=== PATIENT | female | born 1990 | race Caucasian/White ===

== ENCOUNTER 2021-07-12 09:02 | Outpatient (CLI) | payer OTHER, SELFPAY ==
[2021-07-12 10:02] LABS: Beta HCG Quantitative 20.67 mIU/ML
== END 2021-07-12 09:03 | disposition home or self-care (01) ==
DX: N91.2 Amenorrhea, unspecified (principal)
CPT/HCPCS: 36415; 84702

== ENCOUNTER 2021-07-15 07:18 | Outpatient (CLI) | payer OTHER, SELFPAY | END 2021-07-15 07:19 | disposition home or self-care (01) | LOC: ANHLAB 07:20 | DX: N91.2 Amenorrhea, unspecified (principal) | CPT/HCPCS: 36415; 84702 ==

== ENCOUNTER 2021-08-16 16:37 | Outpatient (CLI) | payer OTHER, SELFPAY ==
[2021-08-16 17:52] LABS: Beta HCG Quantitative 124.58 mIU/ML
== END 2021-08-16 16:38 | disposition home or self-care (01) ==
LOC: ANHLAB 16:40
DX: Z32.00 Encounter for pregnancy test, result unknown (principal)
CPT/HCPCS: 36415; 84702

== ENCOUNTER 2021-08-22 11:10 | Outpatient (CLI) | payer OTHER, SELFPAY | END 2021-08-22 11:11 | disposition home or self-care (01) | LOC: ANHLAB 11:14 | DX: Z32.00 Encounter for pregnancy test, result unknown (principal); Z3A.00 Weeks of gestation of pregnancy not specified | CPT/HCPCS: 36415; 84702 ==

== ENCOUNTER 2021-08-29 12:13 | Outpatient (CLI) | payer OTHER, SELFPAY ==
[2021-08-29 13:14] LABS: Beta HCG Quantitative 8.39 mIU/ML
== END 2021-08-29 12:14 | disposition home or self-care (01) ==
LOC: ANHLAB 12:18
DX: Z32.00 Encounter for pregnancy test, result unknown (principal)
CPT/HCPCS: 36415; 84702

== ENCOUNTER 2021-10-18 08:22 | Outpatient (CLI) | payer OTHER, SELFPAY ==
[2021-10-18 09:40] LABS: Beta HCG Quantitative 22.49 mIU/ML
== END 2021-10-18 08:23 | disposition home or self-care (01) ==
DX: Z32.00 Encounter for pregnancy test, result unknown (principal)
CPT/HCPCS: 36415; 84702

== ENCOUNTER 2021-10-21 11:50 | Outpatient (CLI) | payer OTHER, SELFPAY ==
[2021-10-21 12:50] LABS: Beta HCG Quantitative 32.81 mIU/ML
== END 2021-10-21 11:51 | disposition home or self-care (01) ==
LOC: ANHLAB 11:52
DX: Z32.00 Encounter for pregnancy test, result unknown (principal)
CPT/HCPCS: 36415; 84702

== ENCOUNTER 2021-10-23 06:33 | Outpatient (CLI) | payer OTHER, SELFPAY | END 2021-10-23 06:34 | disposition home or self-care (01) | LOC: ANHLAB 06:34 | DX: Z32.00 Encounter for pregnancy test, result unknown (principal) | CPT/HCPCS: 36415; 84702 ==

== ENCOUNTER 2021-10-25 06:34 | Outpatient (CLI) | payer OTHER, SELFPAY ==
[2021-10-25 08:40] LABS: Beta HCG Quantitative 206.81 mIU/ML
== END 2021-10-25 06:35 | disposition home or self-care (01) ==
LOC: ANHLAB 06:36
DX: Z32.00 Encounter for pregnancy test, result unknown (principal)
CPT/HCPCS: 36415; 84702

== ENCOUNTER 2021-12-12 12:11 | Outpatient (CLI) | payer OTHER, SELFPAY ==
[2021-12-12 12:56] LABS: Beta HCG Quantitative 21.64 mIU/ML
== END 2021-12-12 12:12 | disposition home or self-care (01) ==
DX: Z32.00 Encounter for pregnancy test, result unknown (principal)
CPT/HCPCS: 36415; 84702

== ENCOUNTER 2021-12-18 13:15 | Outpatient (CLI) | payer OTHER, SELFPAY ==
[2021-12-18 13:58] LABS: Beta HCG Quantitative 9.53 mIU/ML
== END 2021-12-18 13:16 | disposition home or self-care (01) ==
LOC: ANHLAB 13:19
DX: Z32.00 Encounter for pregnancy test, result unknown (principal)
CPT/HCPCS: 36415; 84702

== ENCOUNTER 2021-12-31 14:56 | Outpatient (CLI) | payer OTHER, SELFPAY ==
[2021-12-31 15:43] LABS: Beta HCG Quantitative < 2.39 mIU/ML
== END 2021-12-31 14:57 | disposition home or self-care (01) ==
DX: N91.2 Amenorrhea, unspecified (principal)
CPT/HCPCS: 36415; 84702

== ENCOUNTER 2022-01-23 06:42 | Outpatient (CLI) | payer OTHER, BC, SELFPAY ==
[2022-01-23 07:12] LABS: Hematocrit 41.6 % (37.0-47.0); Hemoglobin 13.7 g/dL (12.0-15.0); Mean Corpuscular HGB Conc 32.9 g/dl (32-36); Mean Corpuscular Hemoglobin 29.7 pg (26-34); Mean Corpuscular Volume 90.2 fl (80-100); Mean Platelet Volume 9.7 fl (7.4-10.4); Platelet Count Result 270 k/mm3 (150-375); Red Blood Count 4.61 M/mm3 (4.2-5.4); Red Cell Distribution Width 12.8 % (11.5-14.5); White Blood Count 9.5 K/mm3 (4.5-10.0)
[2022-01-23 07:28] LABS: Alanine Aminotransferase 28 U/L (6-35); Albumin Level 4.8 g/dL (3.5-5.1); Alkaline Phosphatase 65 U/L (38-126); Anion Gap 9 mmol/L (8-16); Aspartate Amino Transferase 27 U/L (14-36); Bilirubin,Total 0.4 mg/dL (0.2-1.3); Blood Urea Nitrogen 12 mg/dL (7-17); Calcium 8.9 mg/dL (8.4-10.2); Carbon Dioxide 25 mmol/L (22-30); Chloride 106 mmol/L (98-107); Cholesterol 190 mg/dL (0-200); Estimated Glomerular Filt Rate > 60; Glucose 109 mg/dL (65-110); HDL Direct 30 mg/dL; Potassium 4.1 mmol/L (3.4-5.0); Sodium 140 mmol/L (137-145); Triglycerides 156 mg/dL (<150)
[2022-01-23 07:40] LABS: LDL Cholesterol Direct 116 mg/dL
[2022-01-23 08:35] LABS: Folic Acid 18.9 ng/mL (2.76->20)
== END 2022-01-23 06:43 | disposition home or self-care (01) ==
PROVIDERS: PCP Physician Assistant; Visit Provider Physician Assistant
DX: Z00.00 Encounter for general adult medical examination without abnormal findings (principal)
CPT/HCPCS: 36415; 80053; 80061; 82607; 82746; 84443; 85027

== ENCOUNTER → 2022-02-11 00:15 | Outpatient (CLI) | payer OTHER, BC, SELFPAY ==
[2022-02-11 16:55] LABS: SARS-CoV-2 RNA PCR Negative
== END ==
PROVIDERS: PCP Physician Assistant
DX: Z01.812 Encounter for preprocedural laboratory examination (principal); Z20.822 Contact with and (suspected) exposure to COVID-19
CPT/HCPCS: C9803; U0003; U0005

== ENCOUNTER 2022-02-11 13:01 | Outpatient (CLI) | payer OTHER, BC, SELFPAY ==
[2022-02-11 14:49] LABS: Basophils Percent Auto 0.4 % (0.2-1.2); Eosinophils Absolute Auto 0.1 K/mm3 (0-0.3); Eosinophils Percent Auto 1.2 % (0-4.4); Hematocrit 40.6 % (37.0-47.0); Hemoglobin 13.5 g/dL (12.0-15.0); Immature Granulocyte Absolute 0.04 K/mm3 (0.00-0.031); Immature Granulocyte Percent A 0.4 % (0-0.5); Lymphocytes Absolute Auto 2.69 K/mm3 (0.9-3.2); Lymphocytes Percent Auto 26.2 % (18.3-44.2); Mean Corpuscular HGB Conc 33.3 g/dl (32-36); Mean Corpuscular Hemoglobin 30.1 pg (26-34); Mean Corpuscular Volume 90.4 fl (80-100); Mean Platelet Volume 9.9 fl (7.4-10.4); Monocytes Absolute Auto 0.7 K/mm3 (0.1-0.6); Monocytes Percent Auto 6.5 % (2.6-8.5); Neutrophils Absolute Auto 6.7 K/mm3 (1.3-6.7); Neutrophils Percent Auto 65.3 % (45.5-73.1); Platelet Count Result 295 k/mm3 (150-375); Red Blood Count 4.49 M/mm3 (4.2-5.4); Red Cell Distribution Width 12.7 % (11.5-14.5); White Blood Count 10.3 K/mm3 (4.5-10.0)
[2022-02-11 15:04] LABS: Alanine Aminotransferase 36 U/L (6-35); Albumin Level 5.2 g/dL (3.5-5.1); Alkaline Phosphatase 73 U/L (38-126); Anion Gap 11 mmol/L (8-16); Aspartate Amino Transferase 28 U/L (14-36); Bilirubin,Total 0.4 mg/dL (0.2-1.3); Blood Urea Nitrogen 15 mg/dL (7-17); CRP 1.5 mg/dL (<1.0); Calcium 9.2 mg/dL (8.4-10.2); Carbon Dioxide 24 mmol/L (22-30); Chloride 103 mmol/L (98-107); Estimated Glomerular Filt Rate > 60; Glucose 89 mg/dL (65-110); Sodium 138 mmol/L (137-145)
[2022-02-11 15:21] LABS: Hemoglobin A1C 5.1 % (<5.7)
[2022-02-11 15:22] LABS: Beta HCG Quantitative < 2.39 mIU/ML
[2022-02-13 13:11] LABS: DHEA-Sulfate 142 mcg/dL (23-266)
[2022-02-13 21:35] LABS: Anti-Thrombin III Antigen 98 % (80-120)
[2022-02-14 05:29] LABS: FSH 6.4 mIU/mL (***); LH 6.2 mIU/mL (***); Progesterone 0.4 ng/mL (***); Prolactin 8.1 ng/mL (***)
[2022-02-14 06:40] LABS: Thyroid Peroxidase Antibodies 106 IU/mL (<9)
[2022-02-14 13:49] LABS: Homocysteine 6.9 umol/L (<10.4)
[2022-02-14 18:31] LABS: Testosterone Free 8.9 pg/mL (0.1-6.4); Testosterone Total 46 ng/dL (2-45)
[2022-02-14 20:10] LABS: Hexagonal Phase Confirm Negative (Negative); Lupus dRVVT 1:1 Mix Interpreta Not Indicated; Lupus dRVVT Screen 39 sec (<=45); PTT-LA Screen 54 sec (<=40)
[2022-02-18 06:52] LABS: Anti Nuclear Antibody Pattern Nuclear, Speckled; Anti Nuclear Antibody Titer 1:40 (Negative)
== END 2022-02-11 13:02 | disposition home or self-care (01) ==
LOC: ANHLAB 13:05
PROVIDERS: PCP Physician Assistant
DX: N96 Recurrent pregnancy loss (principal); N92.6 Irregular menstruation, unspecified; E28.8 Other ovarian dysfunction
CPT/HCPCS: 36415; 80053; 81240; 82627; 83001; 83002; 83036; 83090; 83498; 83520; 84144; 84146; 84402; 84403; 84443; 84702; 85025; 85301; 85598; 85613; 85730; 86038; 86039; 86140; 86146; 86376; 86850

== ENCOUNTER 2022-05-21 06:52 | Outpatient (RCR) | payer OTHER, BC, SELFPAY ==
[2022-05-07 08:38] LABS: Beta HCG Quantitative 34.29 mIU/ML
[2022-05-09 08:43] LABS: Beta HCG Quantitative 81.71 mIU/ML
== END 2022-08-05 23:59 | disposition home or self-care (01) ==
LOC: ANHLAB 06:52
PROVIDERS: PCP Physician Assistant
DX: Z32.00 Encounter for pregnancy test, result unknown (principal)
CPT/HCPCS: 36415; 84702

== ENCOUNTER 2022-07-01 14:20 | Outpatient (CLI) | payer OTHER, BC, SELFPAY ==
[2022-07-01 14:54] LABS: Basophils Percent Auto 0.2 % (0.2-1.2); Eosinophils Absolute Auto 0.1 K/mm3 (0-0.3); Eosinophils Percent Auto 0.4 % (0-4.4); Hemoglobin 13.3 g/dL (12.0-15.0); Immature Granulocyte Absolute 0.08 K/mm3 (0.00-0.031); Immature Granulocyte Percent A 0.7 % (0-0.5); Lymphocytes Absolute Auto 2.36 K/mm3 (0.9-3.2); Lymphocytes Percent Auto 19.6 % (18.3-44.2); Mean Corpuscular HGB Conc 34.1 g/dl (32-36); Mean Corpuscular Hemoglobin 31.1 pg (26-34); Mean Corpuscular Volume 91.1 fl (80-100); Monocytes Absolute Auto 0.6 K/mm3 (0.1-0.6); Monocytes Percent Auto 5.1 % (2.6-8.5); Neutrophils Absolute Auto 8.9 K/mm3 (1.3-6.7); Platelet Count Result 284 k/mm3 (150-375); Red Blood Count 4.28 M/mm3 (4.2-5.4); Red Cell Distribution Width 13.9 % (11.5-14.5); White Blood Count 12.1 K/mm3 (4.5-10.0)
[2022-07-01 15:44] LABS: Hepatitis B Surface Antigen Negative (Negative); Rubella IgG Antibody 4.5 IU/ML
[2022-07-01 15:46] LABS: HIV 1/2 Ab P24 Ag Result Negative (Negative)
[2022-07-01 15:55] LABS: Hepatitis C Virus Antibody Negative (Negative)
[2022-07-01 16:29] LABS: Rapid Plasma Reagin Non-Reactive (NonReactive)
[2022-07-03 08:14] LABS: PCP NEGATIVE ng/mL (<25)
[2022-07-11 15:37] LABS: Amphetamines NEGATIVE; Marijuana Metabolites NEGATIVE
[2022-07-11 15:38] LABS: Barbiturates NEGATIVE; Benzodiazepines NEGATIVE; Cocaine Metabolites NEGATIVE
== END 2022-07-01 14:21 | disposition home or self-care (01) ==
PROVIDERS: PCP Physician Assistant
DX: Z36.9 Encounter for antenatal screening, unspecified (principal); Z3A.10 10 weeks gestation of pregnancy
CPT/HCPCS: 36415; 80307; 84443; 85025; 86592; 86703; 86762; 86803; 86850; 86900; 86901; 87086; 87088; 87147; 87340; G0432

== ENCOUNTER 2022-10-28 12:25 | Outpatient (CLI) | payer SELFPAY ==
[2022-10-28 13:33] LABS: Alanine Aminotransferase 16 U/L (6-35); Albumin Level 4.1 g/dL (3.5-5.1); Alkaline Phosphatase 93 U/L (38-126); Anion Gap 7 mmol/L (8-16); Aspartate Amino Transferase 19 U/L (14-36); Bilirubin,Total 0.4 mg/dL (0.2-1.3); Blood Urea Nitrogen 4 mg/dL (7-17); Calcium 8.9 mg/dL (8.4-10.2); Carbon Dioxide 25 mmol/L (22-30); Chloride 102 mmol/L (98-107); Estimated Glomerular Filt Rate > 60; Glucose 97 mg/dL (65-110); Potassium 3.1 mmol/L (3.4-5.0); Sodium 134 mmol/L (137-145)
== END 2022-10-28 12:26 | disposition home or self-care (01) ==
PROVIDERS: PCP Physician Assistant
DX: Z86.39 Personal history of other endocrine, nutritional and metabolic disease (principal)
CPT/HCPCS: 36415; 80053

== ENCOUNTER 2022-11-11 16:10 | Outpatient (CLI) | payer OTHER, SELFPAY ==
[2022-11-11 16:46] LABS: Anion Gap 6 mmol/L (8-16); Blood Urea Nitrogen 6 mg/dL (7-17); Calcium 9.4 mg/dL (8.4-10.2); Carbon Dioxide 24 mmol/L (22-30); Chloride 103 mmol/L (98-107); Estimated Glomerular Filt Rate > 60; Glucose 83 mg/dL (65-110); Potassium 3.7 mmol/L (3.4-5.0); Sodium 133 mmol/L (137-145)
== END 2022-11-11 16:11 | disposition home or self-care (01) ==
LOC: ANHLAB 16:16
PROVIDERS: PCP Physician Assistant
DX: O99.210 Obesity complicating pregnancy, unspecified trimester (principal); O10.919 Unspecified pre-existing hypertension complicating pregnancy, unspecified trimester; Z86.39 Personal history of other endocrine, nutritional and metabolic disease
CPT/HCPCS: 36415; 80048

== ENCOUNTER 2022-11-26 07:39 | Outpatient (CLI) | payer OTHER, SELFPAY ==
[2022-11-26 08:57] LABS: Alanine Aminotransferase 23 U/L (6-35); Alkaline Phosphatase 110 U/L (38-126); Anion Gap 8 mmol/L (8-16); Aspartate Amino Transferase 23 U/L (14-36); Bilirubin,Total 0.5 mg/dL (0.2-1.3); Blood Urea Nitrogen 4 mg/dL (7-17); Calcium 9.2 mg/dL (8.4-10.2); Carbon Dioxide 25 mmol/L (22-30); Chloride 104 mmol/L (98-107); Estimated Glomerular Filt Rate > 60; Glucose 125 mg/dL (65-110); Sodium 137 mmol/L (137-145)
== END 2022-11-26 07:40 | disposition home or self-care (01) ==
PROVIDERS: PCP Physician Assistant
DX: O99.283 Endocrine, nutritional and metabolic diseases complicating pregnancy, third trimester (principal); E03.9 Hypothyroidism, unspecified; Z86.39 Personal history of other endocrine, nutritional and metabolic disease; Z3A.00 Weeks of gestation of pregnancy not specified
CPT/HCPCS: 36415; 80053; 84443; 86147

== ENCOUNTER 2022-11-28 13:02 | Outpatient (CLI) | payer OTHER, SELFPAY ==
[2022-11-28 13:55] LABS: Basophils Percent Auto 0.2 % (0.2-1.2); Eosinophils Absolute Auto 0.1 K/mm3 (0-0.3); Eosinophils Percent Auto 0.6 % (0-4.4); Hematocrit 33.3 % (37.0-47.0); Hemoglobin 11.1 g/dL (12.0-15.0); Immature Granulocyte Absolute 0.04 K/mm3 (0.00-0.031); Immature Granulocyte Percent A 0.4 % (0-0.5); Lymphocytes Absolute Auto 1.85 K/mm3 (0.9-3.2); Lymphocytes Percent Auto 19.6 % (18.3-44.2); Mean Corpuscular HGB Conc 33.3 g/dl (32-36); Mean Corpuscular Hemoglobin 29.4 pg (26-34); Mean Corpuscular Volume 88.3 fl (80-100); Mean Platelet Volume 10.6 fl (7.4-10.4); Monocytes Absolute Auto 0.6 K/mm3 (0.1-0.6); Monocytes Percent Auto 6.5 % (2.6-8.5); Neutrophils Absolute Auto 6.9 K/mm3 (1.3-6.7); Neutrophils Percent Auto 72.7 % (45.5-73.1); Platelet Count Result 235 k/mm3 (150-375); Red Blood Count 3.77 M/mm3 (4.2-5.4); Red Cell Distribution Width 13.1 % (11.5-14.5); White Blood Count 9.4 K/mm3 (4.5-10.0)
[2022-11-28 14:08] LABS: Total Protein Urine Random 19 mg/dL; Ur Ttl Prot Creatinine Ratio 0.19 mg/mg (0-0.20)
== END 2022-11-28 13:03 | disposition home or self-care (01) ==
LOC: ANHLAB 13:05
PROVIDERS: PCP Physician Assistant
DX: O16.2 Unspecified maternal hypertension, second trimester (principal); Z3A.00 Weeks of gestation of pregnancy not specified
CPT/HCPCS: 36415; 82570; 84156; 85025

== ENCOUNTER 2022-12-02 12:01 | Outpatient (NON) | payer OTHER, SELFPAY | END 2022-12-02 12:02 | disposition home or self-care (01) | PROVIDERS: PCP Physician Assistant | DX: R82.90 Unspecified abnormal findings in urine (principal) | CPT/HCPCS: 87086; 87088 ==

== ENCOUNTER 2022-12-05 14:24 | Outpatient (CLI) | payer OTHER, SELFPAY ==
[2022-12-05 15:08] LABS: Basophils Percent Auto 0.3 % (0.2-1.2); Eosinophils Absolute Auto 0.1 K/mm3 (0-0.3); Eosinophils Percent Auto 0.8 % (0-4.4); Hematocrit 36.3 % (37.0-47.0); Hemoglobin 11.9 g/dL (12.0-15.0); Immature Granulocyte Absolute 0.07 K/mm3 (0.00-0.031); Immature Granulocyte Percent A 0.7 % (0-0.5); Lymphocytes Absolute Auto 1.89 K/mm3 (0.9-3.2); Lymphocytes Percent Auto 18.9 % (18.3-44.2); Mean Corpuscular HGB Conc 32.8 g/dl (32-36); Mean Corpuscular Hemoglobin 29.2 pg (26-34); Mean Corpuscular Volume 89.2 fl (80-100); Mean Platelet Volume 10.6 fl (7.4-10.4); Monocytes Absolute Auto 0.7 K/mm3 (0.1-0.6); Monocytes Percent Auto 7.4 % (2.6-8.5); Neutrophils Absolute Auto 7.2 K/mm3 (1.3-6.7); Neutrophils Percent Auto 71.9 % (45.5-73.1); Platelet Count Result 275 k/mm3 (150-375); Red Blood Count 4.07 M/mm3 (4.2-5.4); Red Cell Distribution Width 13.2 % (11.5-14.5)
[2022-12-05 15:16] LABS: Creatinine Urine 42.2 mg/dL
[2022-12-05 15:21] LABS: Alanine Aminotransferase 25 U/L (6-35); Albumin Level 4.4 g/dL (3.5-5.1); Alkaline Phosphatase 112 U/L (38-126); Anion Gap 8 mmol/L (8-16); Aspartate Amino Transferase 29 U/L (14-36); Bilirubin,Total 0.5 mg/dL (0.2-1.3); Blood Urea Nitrogen 5 mg/dL (7-17); Calcium 9.7 mg/dL (8.4-10.2); Carbon Dioxide 28 mmol/L (22-30); Chloride 102 mmol/L (98-107); Estimated Glomerular Filt Rate > 60; Glucose 96 mg/dL (65-110); Potassium 3.9 mmol/L (3.4-5.0); Sodium 138 mmol/L (137-145)
[2022-12-05 16:32] LABS: Total Protein Urine Random 19 mg/dL; Ur Ttl Prot Creatinine Ratio 0.45 mg/mg (0-0.20)
== END 2022-12-05 14:25 | disposition home or self-care (01) ==
LOC: ANHLAB 14:29
DX: E87.6 Hypokalemia (principal); O16.2 Unspecified maternal hypertension, second trimester; O10.919 Unspecified pre-existing hypertension complicating pregnancy, unspecified trimester; O09.93 Supervision of high risk pregnancy, unspecified, third trimester; Z3A.00 Weeks of gestation of pregnancy not specified
CPT/HCPCS: 36415; 80053; 81002; 82570; 84156; 85025

== ENCOUNTER 2023-02-14 10:10 | Emergency (ER) | payer OTHER, SELFPAY ==
--- NOTE | 2023-02-14 10:55 | ED.BACK ---
HPI - Back Pain/Injury General Chief Complaint: Back Pain/Injury Stated Complaint: BACK SPASMS Time Seen by Provider: 02/14/23 10:55 Source: patient, RN notes reviewed and old records reviewed Mode of arrival: ambulatory Limitations: no limitations History of Present Illness HPI Narrative: 33 year old female who presents to [facility] care with complaints of thoracic back pain between her shoulder blades with episode this morning around 0300 which wrapped around her rib cage to middle of lower chest area. Patient states pain was bad and she thinks she had vagal spasm and threw up. Patient reports that she does have some discomfort in her chest when she takes a deep breath she thinks its from vomiting. Patient reports that she took a left over OxyContin 5 mg for the pain which did help. Patient reports that she had a similar episode about 2 weeks ago but pain didn't wrap around ribs just felt really tight in her mid back. Patient reports that she has been seeing chiropractor for past 2 weeks. Patient is 9 weeks had baby 5 weeks early due to pre eclampsia and had been on Labetalol and Procardia for hypertension. Patient reports she did IVF for and was on Lovenox during first part of . Had also been on thyroid med during her which she does not take any longer or any blood pressure medications Patient is breast feeding. MD elicited complaint: back pain (thoracic radiates along ribs to mid chest,) Pertinent past history: other (post ) Onset (ago): week(s) (2) Pain scale (0-10): 5 Similar Symptoms Previously: Yes (2 weeks ago) Radiation: chest (episode last night radiated along ribs and to mid chest) Treatments prior to arrival: other (took pain pill and used ice to back) Related Data Home Medications Medication Instructions Recorded Confirmed loratadine 10 mg tablet (Claritin) 10 mg PO DAILY 02/14/23 02/14/23 vit#24-iron amino acid 1 tablet PO DAILY 02/14/23 02/14/23 chelat-folic acid 30 mg-975 mcg tablet Allergies Allergy/AdvReac Type Severity Reaction Status Date / Time Sulfa (Sulfonamide Allergy Mild hive Verified 02/14/23 10:25 Antibiotics) Review of Systems Review of Systems: CONSTITUTIONAL: Denies fever, chills, or sweats. CARDIOVASCULAR: episode of back pain with radiation to chest,no palpitations, or edema. RESPIRATORY: Denies cough or dyspnea. states hurts to take deep breath GASTROINTESTINAL: Denies abdominal pain,episode of nausea, vomiting at 0300, no diarrhea. GENITOURINARY: Denies dysuria or hematuria. SKIN: Denies rash or itching. MUSCULOSKELETAL: Reports thoracic back pain radiating to chest along rib cage to mid chest area early this morning.No complaints of joint pain or myalgia. NEUROLOGIC: Denies headache, numbness, or weakness. All systems reviewed & are unremarkable except as noted in HPI and below PMFSH Past Medical History Medical History Allergies Anxiety Eclampsia affecting in third trimester Headache Surgical History Surgical History History of appendectomy Hx of laparoscopy endometriosis Previous section Family History Family History Mother Hypertension Grandparent Alcoholism Cancer Diabetes mellitus Hypertension Heart disease Social History Social History Smoking status: Never smoker Second hand tobacco smoke exposure: No Alcohol intake: never Substance use: unknown Living arrangements: with family Additional occupation/education comments: nurse Gender identity (if verbalized by the patient): Female Comments At time of signature, agree with nursing past medical, surgical, social and family history. There is no relevant family history pertinent to the presenting com
--- NOTE | 2023-02-14 11:27 | ECG_ITS ---
Measurements Intervals [place] Rate: 103 P: 19 CO: 165 QRS: 4 QRSD: 100 T: -5 QT: 353 QTc: 463 Interpretive Statements SINUS TACHYCARDIA NONSPECIFIC T-WAVE ABNORMALITY ABNORMAL ECG COMPARED TO ECG 02/14/2023 11:17:59 NO SIGNIFICANT CHANGES Electronically Signed On 02-14-2023 13:23:39 CDT by Federico Neves M.D.
[2023-02-14 11:29] VITALS: BP 119/87; PULSE 106; RESP 16; TEMP 36.4; O2SAT 100
== END 2023-02-14 11:28 | disposition short-term general hospital (02) ==
PROVIDERS: Emergency Provider Registered Nurse; PCP Physician Assistant
DX: M54.6 Pain in thoracic spine (principal); R07.9 Chest pain, unspecified
CPT/HCPCS: 93005; 99213; G0463

== ENCOUNTER 2023-02-14 11:53 | Emergency (ER) | payer OTHER, SELFPAY ==
[2023-02-14] VITALS (15 sets, daily range): BP systolic 125–153; BP diastolic 74–100; PULSE 100–121; RESP 11–32; TEMP 36.7; O2SAT 97–100
--- NOTE | ~2023-02-14 | CT_ITS ---
EXAMINATION: CTA chest PE abdomen pel DATE: 02/14/2023 14:27 INDICATION: Chest pain, pain between shoulder blades TECHNIQUE: Computed tomography angiography (CTA) of the chest, abdomen and pelvis was performed with 100 mL Omnipaque-350 intravenous contrast timed to evaluate the pulmonary arteries. Coronal maximum i ntensity projection 3D-reconstructions were created by the technologist. Automated exposure control a nd iterative reconstruction technique were employed. Exam dose: 2558.24 mGy-cm total exam DLP. COMPARISON: 02/14/2023 PA and lateral chest FINDINGS: The pulmonary arteries are moderately enhanced, without apparent pulmonary embolism. Heart size is normal. No thoracic aortic aneurysm or dissection is evident. No pericardial or pleural effusion. Occasional nonspecific left superior mediastinal lymph nodes are noted measuring up to 8 mm cross-sec tion diameter. No hilar or mediastinal mass lesion or lymphadenopathy is noted otherwise. No pulmonary infiltrate or consolidation or pulmonary mass lesion is detected. Diffuse hepatic steatosis. No hepatic, splenic, pancreatic, and adrenal space-occupying mass lesion is detected. Approximately 7.5 mm upper pole right renal cyst. Approximately 2.5 mm right lower pole nonobstructing calculus. Approximately 3.5 mm nonobstructing lower pole left renal calculus. No ureteral calculus or hydroureteronephrosis is noted on either side. The urinary bladder is relativ jesús evacuated. There is an approximately 3.8 cm left ovarian cyst. The uterus and adnexal areas are otherwise unrema rkable. Normal caliber of the abdominal aorta. No intraperitoneal or retroperitoneal or pelvic mass lesion or adenopathy or ascites. No bowel obstruction, bowel wall thickening, pneumatosis or intraperitoneal free air is detected. Sug gestion of appendectomy; recommend correlation with clinical history. There are soft tissue densities in the subcutaneous adipose tissues of the buttocks, possibly due to prior subcutaneous injections Included skeletal structures are unremarkable except for mild cupping of the superior vertebral endpl ate of T6, which appears chronic. No suspicious osteolytic or osteoblastic lesions are noted. IMPRESSION: No thoracic aortic aneurysm or dissection or apparent pulmonary embolism is noted Hepatic steatosis Small nonobstructing calculus of the lower pole of each kidney 7.5 mm upper pole right renal cyst 3.8 cm left ovarian cyst Reviewed, dictated and finalized at [facility]. Reviewed, dictated and finalized at [facility]. IMPRESSION: No thoracic aortic aneurysm or dissection or apparent pulmonary em bolism is noted Hepatic steatosis Small nonobstructing calculus of the lower pole of each kidney 7.5 mm upper pole right renal cyst 3.8 cm left ovarian cyst
--- NOTE | ~2023-02-14 | US_ITS ---
US abdomen limited INDICATION: Elevated liver function tests. PROCEDURE: Realtime right upper abdominal ultrasound. COMPARISON: No prior studies for comparison. FINDINGS: The pancreas is normal without focal mass or pancreatic ductal dilation. Liver echotexture is increased, consistent with fatty infiltration. There is normal directional flow in the portal ve in. There are gallbladder polyps. There are a few echogenic foci with posterior shadowing, compatible wit h gallstones. No gallbladder wall thickening or pericholecystic fluid. Common bile duct measures 4 m m. No sonographic Elizabeth's sign. IMPRESSION: 1: Cholelithiasis. Gallbladder polyps. 2: Hepatic steatosis. Reviewed, dictated and finalized at [facility].
--- NOTE | ~2023-02-14 | XR_ITS ---
XR chest 2V DATE: 02/14/2023 12:28 INDICATION: Chest pain. Pain between shoulder blades. TECHNIQUE: PA and lateral views COMPARISON: 05/08/2021 chest PA projection FINDINGS: Normal heart size. No hilar or mediastinal enlargement. No pulmonary infiltrate or consolidation, pleural effusion or pulmonary vascular congestion or pneumo thorax. Included skeletal structures appear unremarkable. IMPRESSION: No active cardiopulmonary disease Reviewed, dictated and finalized at [facility].
--- NOTE | 2023-02-14 11:56 | ECG_ITS ---
Measurements Intervals [place] Rate: 103 P: 22 UT: 163 QRS: 14 QRSD: 92 T: 0 QT: 353 QTc: 463 Interpretive Statements SINUS TACHYCARDIA POSSIBLE RIGHT VENTRICULAR CONDUCTION DELAY [RSR (QR) IN V1/V2] NONSPECIFIC T-WAVE ABNORMALITY ABNORMAL ECG NO PREVIOUS ECG AVAILABLE FOR COMPARISON Electronically Signed On 02-14-2023 13:23:15 CDT by Federico Neves M.D.
--- NOTE | 2023-02-14 12:21 | ED.CHESTPAIN ---
HPI - Chest Pain General Chief Complaint: Chest Pain Stated Complaint: back and chest pain Time Seen by Provider: 02/14/23 12:02 Source: patient and old records reviewed Mode of arrival: ambulatory Limitations: no limitations History of Present Illness HPI narrative: This is a 33 year old female who presents for evaluation of back pain and chest pain. She reports she has had intermittent episodes in which she feels tightness in her midback around to her chest. She was being seen by a chiropractor and it was thought to be due to muscle spasms. This morning around 3 am she developed an episode in which she had pain substernal epigastric that radiated around to her back. She had associated nausea, vomiting, diaphoresis and urge to have BM. She took left over oxycodone that help her pain. SHe reports her pain is worsening again so she went to . She came to ER for evaluation to rule out other causes such as PE, gallbladder disease. She denies pain worsening with eating. She reports mild runny nose and congestion for 1-2 weeks. She has pain with inspiration. She is 9 weeks in which she had gestational hypertension but she is no longer requiring any medications. Related Data Home Medications Medication Instructions Recorded Confirmed loratadine 10 mg tablet (Claritin) 10 mg PO DAILY 02/14/23 02/14/23 vit#24-iron amino acid 1 tablet PO DAILY 02/14/23 02/14/23 chelat-folic acid 30 mg-975 mcg tablet Allergies Allergy/AdvReac Type Severity Reaction Status Date / Time Sulfa (Sulfonamide Allergy Mild hive Verified 02/14/23 10:25 Antibiotics) Review of Systems Constitutional: Constitutional: Denies weakness Cardiovascular: Cardiovascular: Reports diaphoresis, Denies syncope, Denies rapid heart rate, Denies irregular heart rhythm, Denies leg edema, Reports lightheadedness and Denies dyspnea Respiratory: Respiratory: Denies chest congestion, Denies hemoptysis, Denies excessive phlegm production and Denies dyspnea Gastrointestinal: Gastrointestinal: Reports abdominal pain, Denies hematochezia, Denies diarrhea, Reports nausea and Reports vomiting Genitourinary: Genitourinary: Denies hematuria and Denies dysuria Musculoskeletal: Musculoskeletal: Denies joint swelling, Denies loss of height and Denies muscle weakness Neurologic: Denies syncope, Denies focal weakness and Denies weakness PMFSH Past Medical History Medical History Allergies Anxiety Eclampsia affecting in third trimester Headache Surgical History Surgical History History of appendectomy Hx of laparoscopy endometriosis Previous section Family History Family History Mother Hypertension Grandparent Alcoholism Cancer Diabetes mellitus Hypertension Heart disease Social History Social History Smoking status: Never smoker Second hand tobacco smoke exposure: No Alcohol intake: never Substance use: unknown Living arrangements: with family Additional occupation/education comments: nurse Gender identity (if verbalized by the patient): Female Exam Narrative: GENERAL: Well-appearing, well-nourished, and in no acute distress. HEAD: Normocephalic, atraumatic NOSE: Nares clear, no rhinorrhea or epistaxis THROAT:Mucous membranes moist, Oropharynx normal without erythema, exudate, peritonsillar swelling or fluctuance NECK: Supple, without lymphadenopathy or mass RESPIRATORY: No respiratory distress, Airway patent, Respirations non-labored, Clear to auscultation without rales, rhonchi or wheeze HEART: Regular rhythm. tachycardic rate No murmur heard. Normal peripheral pulses. ABDOMEN: Soft, TTP epigastric, nondistended, normal active bowel sounds. No masses. No
[2023-02-14] MEDS: MORPHINE SULFATE (*CRX) 4 MG/ML INJ IV PUSH (12:32)
[2023-02-14] MEDS: ONDANSETRON INJ 4 MG/2 ML VIAL IV PUSH (12:32)
[2023-02-14] MEDS: SODIUM CHLORIDE 0.9% IV 1,000 ML 999 ML IV CONT (12:32)
[2023-02-14 12:46] LABS: Basophils Percent Auto 0.5 % (0.2-1.2); Eosinophils Absolute Auto 0.1 K/mm3 (0-0.3); Eosinophils Percent Auto 1.2 % (0-4.4); Hemoglobin 13.4 g/dL (12.0-15.0); Immature Granulocyte Absolute 0.02 K/mm3 (0.00-0.031); Immature Granulocyte Percent A 0.3 % (0-0.5); Lymphocytes Percent Auto 25.6 % (18.3-44.2); Mean Corpuscular HGB Conc 32.7 g/dl (32-36); Mean Corpuscular Hemoglobin 28.9 pg (26-34); Mean Corpuscular Volume 88.4 fl (80-100); Mean Platelet Volume 9.7 fl (7.4-10.4); Monocytes Absolute Auto 0.6 K/mm3 (0.1-0.6); Monocytes Percent Auto 8.3 % (2.6-8.5); Neutrophils Absolute Auto 4.3 K/mm3 (1.3-6.7); Neutrophils Percent Auto 64.1 % (45.5-73.1); Platelet Count Result 253 k/mm3 (150-375); Red Blood Count 4.64 M/mm3 (4.2-5.4); Red Cell Distribution Width 14.4 % (11.5-14.5); White Blood Count 6.6 K/mm3 (4.5-10.0)
[2023-02-14 13:00] LABS: Alanine Aminotransferase 181 U/L (6-35); Albumin Level 4.9 g/dL (3.5-5.1); Alkaline Phosphatase 154 U/L (38-126); Anion Gap 8 mmol/L (8-16); Aspartate Amino Transferase 163 U/L (14-36); Bilirubin,Total 0.7 mg/dL (0.2-1.3); Blood Urea Nitrogen 18 mg/dL (7-17); Calcium 9.2 mg/dL (8.4-10.2); Carbon Dioxide 31 mmol/L (22-30); Chloride 102 mmol/L (98-107); Estimated CRCL calculation 122 ml/min; Estimated Glomerular Filt Rate > 60; Glucose 87 mg/dL (65-110); INR 0.9; Lipase 164 U/L (23-300); Potassium 3.9 mmol/L (3.4-5.0); Prothrombin Time 12.8 Seconds (11.1-14.7); Sodium 141 mmol/L (137-145)
[2023-02-14 13:01] LABS: Partial Thromboplastin Time 31.7 SECONDS (22.3-36.8)
[2023-02-14 13:04] LABS: D Dimer 0.54 ug/mL (<0.48)
[2023-02-14 13:10] LABS: Troponin I < 0.012 ng/mL (0.000-0.034)
[2023-02-14 13:19] LABS: Influenza A QL RT-PCR Negative (Negative); Influenza B QL RT-PCR Negative (Negative); SARS-CoV-2 RNA PCR Negative (Negative)
[2023-02-14 14:22] LABS: Hepatitis B Surface Antigen Negative (Negative)
[2023-02-14 14:30] LABS: HAV RESULT Negative (Negative); Hepatitis B Core IgM Result Negative (Negative)
[2023-02-14 14:39] LABS: Hepatitis C Virus Antibody Negative (Negative)
[2023-02-14 15:50] LABS: Troponin I < 0.012 ng/mL (0.000-0.034)
== END 2023-02-14 16:11 | disposition home or self-care (01) ==
PROVIDERS: Emergency Medicine; Emergency Provider General Practice; PCP Physician Assistant
DX: K80.20 Calculus of gallbladder without cholecystitis without obstruction (principal); R74.01 Elevation of levels of liver transaminase levels; Z20.822 Contact with and (suspected) exposure to COVID-19; R00.0 Tachycardia, unspecified; R94.31 Abnormal electrocardiogram [ECG] [EKG]; K76.0 Fatty (change of) liver, not elsewhere classified; N20.0 Calculus of kidney; N83.202 Unspecified ovarian cyst, left side
CPT/HCPCS: 36415; 71046; 71275; 74177; 76705; 80053; 80074; 81025; 83690; 84484; 85025; 85380; 85610; 85730; 87636; 93005; 96361; 96374; 96375; 99284; J2270; J2405; J7030; Q9967

== ENCOUNTER 2023-02-19 11:16 | Outpatient (CLI) | payer OTHER, SELFPAY ==
[2023-02-19 12:23] LABS: Alanine Aminotransferase 135 U/L (6-35); Albumin Level 4.9 g/dL (3.5-5.1); Alkaline Phosphatase 128 U/L (38-126); Aspartate Amino Transferase 26 U/L (14-36); Bilirubin,Total 0.4 mg/dL (0.2-1.3)
== END 2023-02-19 11:17 | disposition home or self-care (01) ==
PROVIDERS: PCP Physician Assistant; Visit Provider General Practice
DX: R74.01 Elevation of levels of liver transaminase levels (principal)
CPT/HCPCS: 36415; 80076

== ENCOUNTER 2023-03-02 04:33 | Day surgery (SDC) | payer OTHER, SELFPAY ==
[2023-02-25 11:32] VITALS: BMI 39.9
--- NOTE | 2023-02-25 11:37 | PC.NURSE ---
Report to the Outpatient Waiting Room, entrance under the green pavilion located off [facility], at time 1000 on date 03/02/23. Planned Procedure Time: 1200. Time changes happen often and if your time is changed the preop area will call you the afternoon before. - You and your visitor will be asked to self-screen and do not enter if you have any COVID symptoms. - A mask is optional within the hospital at this time. Patients may have clear liquids (water, carbonated beverages, clear teas, apple juice) until 3 hours prior to surgery with a maximum of 20 ounces. - No food from midnight until time of surgery Take the following medications with a SIP of water the morning of surgery: NONE DO NOT STOP ANY OF YOUR OTHER PRESCRIPTION MEDICATIONS PRIOR TO SURGERY ?EXCEPT THE FOLLOWING Medications to discontinue per physician: VITAMINS/SUPPLEMENTS Date to take last dose: 02/26/23 Please no make-up, nail swazi, hairspray, perfume, deodorant, or body powder the day of surgery. No jewelry (including any body piercings) or valuables the day of surgery, leave them at home. Please take a shower or bath the night before, or the morning of, surgery with an antibacterial soap (HIBICLENS). Wear comfortable, loose fitting clothing. - Jewelry must be removed prior to entering the operating room. Rings and piercings that are not removed may be cut off. - The hospital will not accept responsibility for valuables. - Please leave all valuables, including medications, at home the day of surgery. If you are going home after surgery, a licensed cdl b driver must drive you home. - NO public transportation without another adult if you receive anesthesia. - We recommend that an adult stay with you for 24 hours following discharge. - We also recommend that you do not drive, make important decision, drink alcoholic beverages, or take any drugs that were not prescribed by your health care provider for at least 24 hours after your discharge time. Follow any additional instructions given to you from your surgeon. If you or anyone in your household have experienced Covid symptoms in the past week, please notify your surgeon or the nurse liaison at the phone number below for possible testing. Telephone instructions given to PT Dennis GONZALEZ and asked if any additional questions and then verbalized understanding. Patient advised to call surgeon office or pre surgery nurse liaison [phone] if any additional questions.
[2023-03-02] VITALS (12 sets, daily range): BP systolic 128–146; BP diastolic 72–87; PULSE 62–105; RESP 12–18; TEMP 36.4; O2SAT 95–100
--- NOTE | 2023-03-02 07:52 | WPDANESEPPF ---
Anes - Initial Pre Proc Eval Procedure: Operation Date: 03/02/23 12:00 Proposed Procedures p Laparoscopic Cholecystectomy - Diane Major MD Date/Time: 03/02/23 07:52 Surgeon: Diane Major MD Pre Op Diagnosis: Chr Cholecystitis Patient Data Age: 33 Gender: F Height: 1.65 m Weight: 108.9 kg Allergies Allergy/AdvReac Type Severity Reaction Status Date / Time Sulfa (Sulfonamide Allergy Mild hive Verified 03/18/23 09:57 Antibiotics) Home Medications Medication Instructions Recorded Confirmed Type loratadine 10 mg tablet (Claritin) 10 mg PO DAILY 02/14/23 03/18/23 History [id number] 3-fat com #1 27 cap PO 03/18/23 03/18/23 History mg-1 mg-300 mg capsule multivitamin 1 tablet PO DAILY 03/18/23 03/18/23 History Patient hx anesthesia problems: none Family hx anesthesia problems: none Results Review: All pre-operative results and documents have been reviewed as part of the pre-operative evaluation. [facility] Past Medical History Medical History (Updated 03/18/23 @ 10:09 by Evonne Del Valle) Allergies Anxiety Eclampsia affecting in third trimester Endometriosis Headache Surgical History Surgical History (Updated 03/18/23 @ 09:57 by Evonne Garcia) History of appendectomy Hx of laparoscopy endometriosis Previous section 11/2022 S/P laparoscopic cholecystectomy 03/02/23 Family History Family History Mother Hypertension Grandparent Alcoholism Cancer Diabetes mellitus Hypertension Heart disease Social History Social History Smoking packs per day: 0.5 Smoking cigarettes per day: 10.0 Years smoked: 5 Smoking pack-years: 2.50 Smoking status: Former smoker Tobacco type: cigarettes Second hand tobacco smoke exposure: No Smoking end date: 08/31/19 Alcohol intake: never Substance use: never Substance use type: does not use Living arrangements: with family Occupation/Education: occupation Additional occupation/education comments: RN Gender identity (if verbalized by the patient): Female Spiritual care concerns: No Anes - Eval Final PreProcedure Day of Procedure 03/02/23 07:52 Patient weight: morbidly obese Heart: regular rate and rhythm Lungs: clear to auscultation Airway: Mallampati scale class II Neurological: alert and oriented Last oral intake: >/= 8 hours ASA classification: III Emergent: no Anesthetic plan: proceed Anesthesia type and monitoring: general ETT and standard monitoring Results Review: All pre-operative results and documents have been reviewed as part of the pre-operative evaluation. Informed Consent: The patient's anesthetic plan and its attendant risks and benefits were discussed with the patient/family/POA. Questions were solicited and answers provided to the satisfaction of the patient/family/POA.
[2023-03-02] MEDS: LACTATED RINGERS 1,000 ML 30 ML IV CONT ×2 (10:49→13:09)
[2023-03-02] MEDS: ACETAMINOPHEN 500 MG TABLET 1000 MG PO (10:49)
[2023-03-02] MEDS: KETOROLAC 15 MG/ML VIAL (*BKC) IV PUSH (10:50)
[2023-03-02 11:10] LABS: Amylase 73 U/L (30-110)
--- NOTE | 2023-03-02 12:08 | WPDHPUPDATE1 ---
History and Physical Update Update Date/Time: 03/02/23 12:08 History and Physical has been reviewed, including an updated exam of the patient. There are NO changes in the patient's condition. Risks, benefits, and alternatives have been discussed and questions answered. Patient agrees to proceed with procedure.
[2023-03-02] MEDS: ceFAZolin 2 GM/D5W 50 ML 2 GM/50 ML BAG IVPB (12:10)
[2023-03-02] MEDS: BUPIVACAINE/EPINEPHRINE 0.25% 10 ML VIAL 30 ML INFILTRATE (12:37)
--- NOTE | 2023-03-02 13:13 | W.PM.PROC2 ---
Procedure Note - Detailed Date of Procedure 03/02/23 Pre-op Diagnosis Chronic Cholecystitis with Cholelithiasis Post-op Diagnosis Same Procedure Performed Laparoscopic cholecystectomy Surgeon Diane Major MD Anesthesia General Indications 33-year-old female presented to the office complaining of postprandial right upper quadrant abdominal pain associated with nausea and vomiting. Workup including imaging significant for cholecystitis, cholelithiasis. Findings Cholecystitis with cholelithiasis Description of Procedure The patient was taken to the operating room placed in the supine position. After adequate induction of general anesthesia, the patient was prepped and draped in normal sterile fashion. A time-out was then performed to verify the patient's identity as well as the procedure being performed. I then made a 5 mm incision in the infraumbilical region. Through this, a Veress needle was placed into the peritoneal cavity and CO2 gas was then insufflated. After adequate pneumoperitoneum was achieved, the Veress needle was removed and a 5 mm optiview trocar was placed through this incision under direct visualization. I then placed the laparoscope through this trocar site and under direct visualization placed a further 12 mm subxiphoid port as well as 2 additional 5 mm ports in the right upper abdomen. The gallbladder was then identified and was noted to be moderately inflamed and distended. There were some omental adhesions to the gallbladder and these were taken down with the Bovie cautery. I was able to place a grasper at the dome of the gallbladder and this was retracted anterior and cephalad up over the liver. A 2nd retractor was then placed at the infundibulum and retracted laterally, this allowed visualization of the triangle of Calot. I then was able to visualize the cystic duct in its entirety from its proximal insertion into the gallbladder, to its distal junction with the common hepatic/common bile duct junction. At this point, I carefully skeletonized the proximal cystic duct with the [place] dissector. I then clipped and transected the proximal cystic duct. Next I visualized the cystic artery. Again the artery was skeletonized, clipped, and transected. I then used the Bovie cautery to take down the peritoneal attachments of the gallbladder off the liver bed. This was somewhat difficult given the amount of inflammation in the posterior space. Once the gallbladder specimen was completely detached, an endo-pouch was placed through the 12 mm port site. I then placed the gallbladder specimen into the Endo pouch and removed the endo-pouch from the 12 mm port site. The specimen will now be sent to pathology for further review. I then copiously irrigated the right upper quadrant. Some mild oozing was noted in the liver bed and this was controlled with the bovie cautery. Hemostasis was noted in the liver bed, the clips were noted to be in good position on both the cystic duct stump and the cystic artery stump. No other pathology was noted in the right upper quadrant. I then moved the laparoscope to the subxiphoid port. No iatrogenic injury or other pathology was noted in the lower abdomen. I then closed the 12 mm trocar site under direct visualization using the Damon cone and 0 Vicryl suture. At this point, the abdomen was desufflated and all ports removed. All port sites were then closed with 4.O Monocryl subcuticular sutures. Dermabond was placed on each incision. The patient tolerated the procedure well, was extubated in the operating room postoperative and will be transferred to the recovery room in stable condition Estimated Blood Loss 10 Drains No Packing No Pathology Yes Complications No immediate complications Condition Stable Disposition PACU [facility] Billing Surgery - Charge Forward: Surgery Billing
[2023-03-02] MEDS: ONDANSETRON INJ 4 MG/2 ML VIAL IV PUSH (13:33)
[2023-03-02] MEDS: fentaNYL CITRATE INJ (*CRX) 100 MCG/2 ML VIAL 25 MCG IV PUSH ×3 (13:36→14:34)
[2023-03-02] MEDS: SCOPOLAMINE 1.5 MG PATCH TRANSDERM (14:02)
[2023-03-02] MEDS: diphenhydrAMINE HCl INJ 50 MG/ML VIAL 25 MG IV PUSH (14:02)
[2023-03-02] MEDS: oxyCODONE HCL (*CRX) 5 MG TAB IR PO (15:09)
== END 2023-03-02 15:49 | disposition home or self-care (01) ==
PROVIDERS: PCP Physician Assistant; Visit Provider Surgery
PROC: 0FT44ZZ Resection of Gallbladder, Percutaneous Endoscopic Approach (ICD-10-PCS; CPT 47562; principal; 2023-03-02 12:00)
DX: K80.10 Calculus of gallbladder with chronic cholecystitis without obstruction (principal); Z87.891 Personal history of nicotine dependence; E66.01 Morbid (severe) obesity due to excess calories; Z68.41 Body mass index [BMI] 40.0-44.9, adult
CPT/HCPCS: 47562; 36415; 82150; 86850; 86900; 86901; 88304; A9270; J0330; J0690; J1100; J1200; J1885; J2250; J2405; J2704; J3010; J7120